=== PATIENT | male | born 1980 ===

== ENCOUNTER 2017-08-24 16:57 | Emergency (ER) | payer MEDICAID ==
[~2017-08-24] VITALS: Ht 167.6 cm; Wt 64.4 kg
[2017-08-24 17:00] VITALS: Ht 167.6 cm; Wt 64.4 kg
[2017-08-24] MEDS ORDERED: IBUPROFEN 600 MG TAB PO ONE (18:30)
[2017-08-24] MEDS ORDERED: ACETAMINOPHEN 325 MG TAB PO ONE (18:30)
[2017-08-24] MEDS ORDERED: CEFTRIAXONE 1 GM INJ IM ONE (19:00)
[2017-08-24] MEDS ORDERED: LIDOCAINE 1% (MDV) 20 ML INJ SC ONE (19:00)
[2017-08-24] MEDS ORDERED: IBUP-1542 PO (19:34)
[2017-08-24] MEDS ORDERED: OSLT75C PO (19:34)
[2017-08-24] MEDS ORDERED: PROM5SYR2 PO (19:34)
[2017-08-24] MEDS ORDERED: LEVO500T72 PO (19:34)
--- NOTE | 2017-08-24 19:40 | ERD ---
ER Documentation Chief Complaint Chief Complaint Complains of chest pain and fever x 2 days HPI 37-year-old male complains of fever and cough, body aches and pleuritic chest pain for last 2 days. He has no vomiting, abdominal pain, diarrhea, neck stiffness, rashes. ROS All systems reviewed and are negative except as per history of present illness. Medications Home Meds Active Scripts Promethazine HCl/Codeine (Prometh-Codein 6.25-10 mg/5 ml) 5 Ml Syrup, 5 ML PO QID for 5 Days 4 OZ Prov:DONNA SIMS MD 08/24/17 Levofloxacin* (Levaquin*) 500 Mg Tablet, 500 MG PO DAILY for 7 Days, TAB Prov:DONNA SIMS MD 08/24/17 Oseltamivir Phosphate* (Tamiflu*) 75 Mg Capsule, 75 MG PO BID for 7 Days, CAP Prov:DONNA SIMS MD 08/24/17 Ibuprofen* (Motrin*) 600 Mg Tab, 600 MG PO Q6, #20 TAB Prov:DONNA SIMS MD 08/24/17 Allergies Allergies: Coded Allergies: No Known Allergy (Unverified , 08/24/17) PMhx/Soc History of Surgery: No Anesthesia Reaction: No Hx Neurological Disorder: No Hx Respiratory Disorders: No Hx Cardiac Disorders: No Hx Psychiatric Problems: No Hx Miscellaneous Medical Probl: No Hx Alcohol Use: No Hx Substance Use: No Hx Tobacco Use: Yes (10-15 cigs per day) Smoking Status: Current every day smoker FmHx Family History: No coronary disease, No diabetes, No other Physical Exam Vitals Vital Signs Date Time Temp Pulse Resp B/P Pulse Ox O2 Delivery O2 Flow Rate FiO2 08/24/17 17:00 102.4 126 20 173/81 98 Physical Exam Const: [], [id number]. Head: Atraumatic Eyes: Normal Conjunctiva ENT: Normal External Ears, Nose and Mouth. TMs normal oropharynx normal. Neck: Full range of motion..~ No meningismus. Resp: Clear to auscultation bilaterally. Coarse cough without rales or wheezing or retractions appreciated. Cardio: Regular rate and rhythm, no murmurs Abd: Soft, non tender, non distended. Normal bowel sounds Skin: No petechiae or rashes Back: No midline or flank tenderness Ext: No cyanosis, or edema Neur: Awake and alert Psych: Normal Mood and Affect Results 24 hrs Current Medications Medications (Trade) Dose Ordered Sig/Laith Route PRN Reason Start Time Stop Time Status Last Admin Dose Admin Ibuprofen (Motrin) 600 mg ONCE ONCE PO 08/24/17 18:30 08/24/17 18:31 DC 08/24/17 18:16 Acetaminophen (Tylenol Tab) 650 mg ONCE ONCE PO 08/24/17 18:30 08/24/17 18:31 DC 08/24/17 18:16 Ceftriaxone Sodium (Rocephin) 1 gm ONCE ONCE IM 08/24/17 19:00 08/24/17 19:01 DC 08/24/17 19:04 Lidocaine (Xylocaine 1% (Mdv) 20 ml) 20 ml ONCE ONCE SC 08/24/17 19:00 08/24/17 19:01 DC 08/24/17 19:05 Procedures/MDM Chest X-ray 1V Interpreted by me: Soft Tissue: No acute abnormalities Bones: No acute abnormalities Mediastinum/Cardiac Silhouette/Lungs: Upper lobe infiltrate. Impression- left upper lobe infiltrate. Patient presents with signs of fever and URI and signs of pneumonia on x-ray. He may have influenza as well. He will treated with Levaquin, Tamiflu, fever control primary care follow-up and return precautions. There is no evidence of hypoxemia, respiratory distress. EKG: Rate/Rhythm: [Normal Sinus Rhythm] rate equals 132. QRS, ST, T-waves: [No changes consistent w/ acute ischemia] Impression: [No evidence of ischemia or arrhythmia] depression-sinus tachycardia otherwise no findings of acute ischemia. Patient is improvement in tachycardia with fever control. Patient shows no signs of sepsis and is alert and well-appearing. Patient is advised to recheck with primary doctor or return to ER for new or worsening symptoms. The patient was stable with no new complaints during the ER course. Clinically, there is no current evidence to suggest meningitis, sepsis, acute abdomen acute coronary syndrome, pulmonary embolism, or any other emergent condition appearing to require further evaluation or hospitalization. The patient should certainly return for any new or worsening symptoms per the aftercare instructions. They should otherwise follow-up with her primary care doctor for reevaluation this week. Departure Diagnosis: Primary Impression: Pneumonia Pneumonia type: due to unspecified organism Laterality: left Lung location : upper lobe of lung Qualified Code: J18.1 - Pneumonia of left upper lobe due to infectious organism Condition: Stable Patient Instructions: Fever Control (Adult), Pneumonia (Adult) Additional Instructions: X-ray shows pneumonia. May have influenza as well. We will treat for both. Recheck for new or worsening symptoms or primary care doctor. DONNA SIMS MD Aug 24, 2017 19:40
--- NOTE | 2017-08-24 19:57 | RADRPT ---
PROCEDURE: XR Chest. CLINICAL INDICATION: Cough and fever TECHNIQUE: Single portable view of the chest was obtained. COMPARISON: None. FINDINGS: Normal cardiomediastinal silhouette. Left upper lobe airspace opacity.. No pleural effusion or pneum othorax. IMPRESSION: Left upper lobe airspace opacity consistent with pneumonia. Recommend follow-up radiograph after com pletion of treatment. RPTAT:AAJJ Physician Cezar Date Time Electronically viewed and signed by Grant Grigsby Physician on 08/24/2017 20:03 /
== END 2017-08-24 19:43 | disposition home or self-care (01) ==
LOC: FTE 16:57
DX: J18.1 Lobar pneumonia, unspecified organism (principal); F17.210 Nicotine dependence, cigarettes, uncomplicated
CPT/HCPCS: 71020; 96372; J0696; Z7502; Z7610

== ENCOUNTER 2018-08-26 19:57 | Emergency (ER) | END 2018-08-26 20:37 | disposition left against medical advice (07) ==